=== PATIENT | female | born 1965 | race Caucasian/White ===

== ENCOUNTER 2016-11-04 | Day surgery (SDC) | payer BC ==
[2016-11-03 09:18] LABS: BASOPHILS 0.2 %; BASOPHILS ABSOLUTE 0.01 10/3/uL (0.0-0.16); EOSINOPHILS 4.6 %; EOSINOPHILS ABSOLUTE 0.26 10/3/uL (0.0-0.53); HEMATOCRIT 38.9 % (36.0-48.0); HEMOGLOBIN 13.1 g/dL (12.0-16.0); IMMATURE GRANULOCYTES 0.2 %; IMMATURE GRANULOCYTES ABSOLUTE 0.01 10/3/uL (0.0-0.11); MEAN CORPUS HGB CONC 33.7 g/dL (32.0-36.0); MEAN CORPUSCULAR HEMOGLOB 31.7 pg (26.0-34.0); MEAN CORPUSCULAR VOLUME 94.2 fL (80-100); MEAN PLATELET VOLUME 10.4 fL (9.2-13.0); MONOCYTES 8.8 %; NEUTROPHILS 63.2 %; NEUTROPHILS ABSOLUTE 3.57 10/3/uL (2.02-8.40); PLATELET COUNT 191 10/3/uL (150-400); RBC DISTRIBUTION WIDTH 12.8 % (12.0-16.0); RED CELL COUNT 4.13 10/6/uL (4.0-5.6); WHITE BLOOD CELLS 5.7 10/3/uL (4.5-10.5)
[2016-11-03 09:21] LABS: MANUAL DIFF NO %
[2016-11-03 09:30] LABS: A/G RATIO 1.4 (0.7-1.9); ALBUMIN 3.9 G/DL (3.5-5.0); ALKALINE PHOSPHATASE 93 U/L (45-117); BUN (BLOOD UREA NITROGEN) 13 MG/DL (6-23); CALCIUM, SERUM 9.2 MG/DL (8.5-10.4); CHLORIDE, SERUM 106 MMOL/L (96-112); CO2 (CARBON DIOXIDE) 32 MMOL/L (24-34); CREATININE 0.73 MG/DL (0.55-1.02); GFR AFRICAN AMERICAN 109 ML/MIN (>=60); GFR NON AFRICAN AMERICAN 94 ML/MIN (>=60); GLOBULIN 2.8 G/DL (2.5-4.1); GLUCOSE, SERUM 91 MG/DL (60-99); POTASSIUM, SERUM 3.7 MMOL/L (3.5-5.3); SGOT(AST) 36 U/L (5-40); SGPT(ALT) 58 U/L (5-65); SODIUM, SERUM 143 MMOL/L (135-148); TOTAL BILIRUBIN 0.5 MG/DL (0-1.2); TOTAL PROTEIN 6.7 G/DL (6.0-8.5)
[~2016-11-04] MED LIST: ADVIL PO; K500 PO; NEUR100 PO; SUDAFED PO; ZANTAC 75 PO; ZYRTEC ALLGY10 MG PO
--- NOTE | ~2016-11-04 | OP ---
Record Of Operation [facility] [address] [place]. [address] NAME: JONI CUELLAR : 61 STATUS : DIS IN PAT#: [id number] AGE: 51 ADM/REG DATE : 11/04/16 MR#: [id number] REPORT SERV DATE: 11/05/16 DICTATED BY: ANNEMARIE MYRICK DATE: 11/04/16 REPORT STATUS : Draft TRANSCRIBED BY: MODJeanette DATE: 11/04/16 DATE OF PROCEDURE: 11/04/2016 PREOPERATIVE DIAGNOSIS: Left breast locally-advanced breast cancer status post neoadjuvant chemotherapy. Indwelling right chest wall port. POSTOPERATIVE DIAGNOSIS: Left breast locally-advanced breast cancer status post neoadjuvant chemotherapy. PROCEDURE: 1. Removal of right chest wall port. 2. Left breast segmentectomy. 3. Left axillary sentinel lymph node biopsy. INDICATION FOR THE PROCEDURE: Ms Cuellar is a healthy, 51-year-old, female with a large breast mass in the left upper outer quadrant with obvious lymphadenopathy. Biopsy showed invasive ductal cancer grade 3, triple negative with positive lymphadenopathy. She had neoadjuvant chemotherapy with a wonderful clinical response. She does still have a palpable scar versus tumor in the left upper outer quadrant measuring approximately a centimeter in size. She also has had full clinical response by ultrasound exam to the axilla. The patient is strongly motivated for breast preservation, and we are ready to move forward with breast preservation surgery including segmentectomy and sentinel lymph node biopsy and possible axillary dissection. Dr. Silvestre has cleared us to remove her port. She presented for lymphoscintigraphy scan earlier today showing good uptake in the left axilla and a single lymph node. OPERATIVE FINDINGS: After appropriate consent was noted on the chart. The patient was taken to the operating room in supine position. She was placed under general anesthesia without any complications. The gamma probe was placed into the left axilla and good uptake noted. Methylene blue was not utilized. The scar versus tumor is still palpable in the left upper outer quadrant. Ultrasound was not needed. The bilateral chest wall and left axilla were prepped and draped in sterile fashion. An incision was made in the upper outer quadrant between the palpable tumor site and the axillary lymph nodes. Sharp dissection was carried down to the level of breast parenchyma. Dissection carried over to the palpable tumor and surrounding this as well. A generous margin was taken approximately 1 cm in all directions down to the level of the pectoralis major fascia. The specimen was marked with sutures and sent for permanent pathology. An additional margin was taken and the superior deep portion down to the level of the fascia including the fascia as this was felt to be the closest margin. All of this was sent for permanent pathology. The left axillary sentinel node biopsy was performed. Thompson node #1 had ex-vivo count of 1794, #2 of 732, and #3 of 3160. The pathologist noted sentinel lymph node #1 and #2 showed no sign of malignancy. I sent sentinel lymph node #3 for permanent pathology. The wound was copiously irrigated with warm saline and hemostasis achieved. I did have some still slow oozing from the muscle border and decided to use Surgicel to pack the wound and hold pressure. Once pressure had been held, no bleeding was noted. Local anesthetic was instilled into the muscle soft tissues and deep dermis. The incision was closed in two layers of Monocryl. The right port Record Of [address] [place]. [address] NAME: JONI CUELLAR : 61 STATUS : DIS IN PAT#: [id number] AGE: 51 ADM/REG DATE : 11/04/16 MR#: [id number] REPORT SERV DATE: 11/05/16 DICTATED BY: ANNEMARIE MYRICK DATE: 11/04/16 REPORT STATUS : Draft TRANSCRIBED BY: JUDE DATE: 11/04/16 was removed in routine fashion. A #15 blade was used to open the incision. Sharp dissection was carried down to the port hub, which was grasped and the catheter pulled from the vein. The server service assistant held pressure on the vein for five minutes while I removed the port. Two stay sutures were clipped. The port was removed without issue and the sutures removed from the soft tissues. The port had no sign of infection or mechanical damage. Catheter appeared to be intact. The wound was irrigated with warm saline. Local anesthetic infiltrated in the skin and soft tissue and hemostasis achieved. The incision was closed in two layers of Monocryl. Both incisions were cleansed and dried. Dermabond overlaid. Once the Dermabond had dried. Burn fluff and a binder were placed on the patient. The patient was awoken from anesthesia without complication and taken to the PACU in stable condition for recovery. All counts were correct at the end of the case. ESTIMATED BLOOD LOSS: 40 mL. COMPLICATIONS: None. SPECIMEN: 1. Left breast upper outer quadrant segment. 2. New superior-posterior margin. 3. Right port for no pathology and left axillary sentinel node x3. PERRI/MODL Annemarie Myrick MD / [id number] CC: MD Angi Barrera N.P. Gregory R. Sutton, MD [facility] ROXANA ORNELAS MD
== END 2016-11-04 16:14 | disposition home or self-care (01) ==
PROVIDERS: Surgery Surgical Oncology
PROC: 0HBU0ZZ Excision of Left Breast, Open Approach (ICD-10-PCS; 2016-11-04)
PROC: 07B60ZX Excision of Left Axillary Lymphatic, Open Approach, Diagnostic (ICD-10-PCS; 2016-11-04)
PROC: 0JPT0XZ Removal of Tunneled Vascular Access Device from Trunk Subcutaneous Tissue and Fascia, Open Approach (ICD-10-PCS; principal; 2016-11-04 11:45)
PROC: 05PYX3Z Removal of Infusion Device from Upper Vein, External Approach (ICD-10-PCS; 2016-11-04 11:45)
DX: C50.412 Malignant neoplasm of upper-outer quadrant of left female breast (principal); C77.3 Secondary and unspecified malignant neoplasm of axilla and upper limb lymph nodes; Z17.1 Estrogen receptor negative status [ER-]; Z92.21 Personal history of antineoplastic chemotherapy; G62.9 Polyneuropathy, unspecified; M19.90 Unspecified osteoarthritis, unspecified site; M41.9 Scoliosis, unspecified; K21.9 Gastro-esophageal reflux disease without esophagitis; Z88.1 Allergy status to other antibiotic agents; Z88.2 Allergy status to sulfonamides; Z88.5 Allergy status to narcotic agent; Z79.2 Long term (current) use of antibiotics; Z79.899 Other long term (current) drug therapy; Z87.891 Personal history of nicotine dependence; Z98.51 Tubal ligation status
CPT/HCPCS: 71020; 78195; 80053; 84703; 85025; 88305; 88307; 88331; 88341; 88342; 88360; 93005; A9270-GY; A9541; J0690; J2250; J2405; J3010